=== PATIENT | male | born 1970 | race Caucasian/White ===

== ENCOUNTER 2020-02-02 01:49 | Day surgery (SDC) | payer BC, SELFPAY ==
[2020-01-29 11:59] VITALS: BMI 23.9
[2020-02-02 07:17] VITALS: BP 136/76; PULSE 55; RESP 18; TEMP 36.8; O2SAT 100
[2020-02-02] MEDS: LACTATED RINGERS 1,000 ML 150 ML IV CONT (07:28)
--- NOTE | 2020-02-02 07:51 | P.HP_ITS ---
History of Present Illness History of Present Illness Consent: Risks, benefits, and alternatives have been discussed and questions answered. Patient agrees to proceed with procedure. Chief complaint: Neosplasm Screening Narrative: Rogerio Brody is a 50 year old male Referred for screening colonoscopy. He has no family history of colon cancer [facility] Family History Family History Grandparent Diabetes mellitus Father Acute myocardial infarction Social History Social History Smoking status: Never smoker Alcohol intake: never Meds Home Medications and Allergies Home Medications Medication Instructions Recorded Confirmed Type atorvastatin 10 mg PO DAILY 01/29/20 02/02/20 History Allergies Allergy/AdvReac Type Severity Reaction Status Date / Time No Known Allergies Allergy Verified 02/02/20 07:09 Vital Signs Vital Signs - 24 hr 02/02/20 07:17 Temperature 36.8 C Pulse Rate 55 L Respiratory Rate 18 Blood Pressure 136/76 Pulse Oximetry 100 Exam Resp: Auscultation: clear to auscultation bilaterally Cardio: Rate: regular rate Rhythm: regular rhythm GI: GI Palp: Yes Soft to palpation and No Tenderness to palpation present (GI) Assessment and Plan Assessment and plan (1) Colon cancer screening: Code(s): Z12.11 - Encounter for screening for malignant neoplasm of colon Status: Acute Assessment and Plan: Colonoscopy with possible biopsy or polypectomy or cautery or injection of substances.
--- NOTE | 2020-02-02 08:00 | WPDANESEPPF ---
Anes - Initial Pre Proc Eval Procedure: Operation Date: 02/02/20 08:30 Proposed Procedures p Screening Colonoscopy - Ranjit Friend MD Date/Time: 02/02/20 08:00 Surgeon: Ranjit Friend MD Pre Op Diagnosis: Neosplasm Screening Patient Data Age: 50 Gender: M Height: 6 ft Weight: 81 kg Last Vital Signs Temp 98.2 F 02/02/20 07:17 Pulse 55 L 02/02/20 07:17 Resp 18 02/02/20 07:17 BP 136/76 02/02/20 07:17 Pulse Ox 100 02/02/20 07:17 Allergies Allergy/AdvReac Type Severity Reaction Status Date / Time No Known Allergies Allergy Verified 02/02/20 07:09 Home Medications Medication Instructions Recorded Confirmed Type atorvastatin 10 mg PO DAILY 01/29/20 02/02/20 History Patient hx anesthesia problems: none Family hx anesthesia problems: none PMFSH Past Medical History Medical History (Updated 02/02/20 @ 08:00 by Jordan Campo MD) Hyperlipidemia Family History Family History Grandparent Diabetes mellitus Father Acute myocardial infarction Social History Social History Smoking status: Never smoker Alcohol intake: never Anes - Eval Final PreProcedure Day of Procedure 02/02/20 08:00 Patient weight: normal Heart: regular rate and rhythm Lungs: clear to auscultation Airway: Mallampati scale class II Neurological: alert and oriented Last oral intake: >/= 8 hours ASA classification: II Emergent: no Anesthetic plan: proceed Anesthesia type and monitoring: general GIVS and standard monitoring Informed Consent: The patient's anesthetic plan and its attendant risks and benefits were discussed with the patient/family/POA. Questions were solicited and answers provided to the satisfaction of the patient/family/POA.
[2020-02-02 08:40] VITALS: BP 105/71; PULSE 65; RESP 16; O2SAT 95
[2020-02-02 08:50] VITALS: BP 114/72; PULSE 58; RESP 16; O2SAT 100
--- NOTE | 2020-02-02 08:57 | SUR.PHASEII ---
COVID SHEET GIVEN
[2020-02-02 09:00] VITALS: BP 122/74; PULSE 60; RESP 16; O2SAT 100
== END 2020-02-02 09:14 | disposition home or self-care (01) ==
PROVIDERS: PCP Family Medicine; Visit Provider Internal Medicine Gastroenterology
PROC: 0DJD8ZZ Inspection of Lower Intestinal Tract, Via Natural or Artificial Opening Endoscopic (ICD-10-PCS; CPT 45378; principal; 2020-02-02 08:30)
DX: Z12.11 Encounter for screening for malignant neoplasm of colon (principal); E78.5 Hyperlipidemia, unspecified
CPT/HCPCS: 45378; J2704; J7120

== ENCOUNTER → 2024-12-22 10:08 | Outpatient (REF) | payer OTHER, SELFPAY ==
--- OUTSIDE RECORDS SUMMARY | 2024-12-22 10:51 | XMS_ITS | Clinical Summary ---
Author Organization [facility] Address [address] [place] [id number] Care Team Providers Care Media Executive Name Role Phone Andreas Smith MD Primary Care Provider [phone] Guero Salcedo MD Unavailable [phone] Allergies No known active allergies Medications atorvastatin (LIPITOR) 10 mg tablet 12/20/2023 Active linaCLOtide (LINZESS) 145 mcg capsule 1 capsule (145 mcg total) daily Active Active Problems No known active problems Surgical History Surgery Date Site/Laterality Comments COLONOSCOPY 01/14/2020 - 02/13/2020 SHOULDER SURGERY Left labrum and bicep tendon Medical History Medical History Date Comments IBS (irritable colon syndrome) c onstipation Family History Medical History Relation Name Comments No Known Problems Father No Known Problems Mother Relation Name Status Comments Father Mother Social History Tobacco Use Types Packs/Day Years Used Date Smoking Tobacco: Never Smokeless Tobacco: Never Personal Safety Answer Date Recorded Getting School Help Needed Not on file 01/17 Sex and Gender Information Value Date Recorded Sex Assigned at Not on file 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 Gender Identity Not on file Sexual Orientation Not on file Obstetrics History Last Filed Vital Signs Vital Sign Reading Time Taken Comments Blood Pressure 131/70 02/24/2024 1:00 PM CDT Pulse 69 02/24/2024 1:00 PM CDT Temperature - - Respiratory Rate - - Oxygen Saturation 99% 02/24/2024 1:00 PM CDT Inhaled Oxygen Concentration - - Weight 78.9 kg (174 lb) 02/24/2024 1:00 PM CDT Height 175.3 cm (5' 9 ) 02/24/2024 1:00 PM CDT Body Mass Index 25.7 02/24/2024 1:00 PM CDT Plan of Treatment Health Maintenance Due Date Last Done Comments Colon Cancer Screening-Colonoscopy 1970 Depression Screening 1970 Hepatitis C Screening 1970 Prostate Cancer Screening-PSA 1970 DTaP/Tdap/Td Vaccine (1 - Tdap) 1981 Hepatitis B Screening 1988 Regular Well Visit/Exam 18-64 1988 Zoster Vaccine (1 of 2) 2020 Influenza Vaccine (#1) 2024 Pneumococcal vaccine <65 Aged Out No longer eligible based on patient's age to complete [place] [address] [facility] Care Teams Media Executive Relationship Specialty Start Date End Date Andreas Smith MD [address] [place] [address] [address] PCP - General Family Medicine 01/18/24 Guero Salcedo MD [id number] [place] [address] Surgeon Colon and Rectal Surgery 02/24/24
--- OUTSIDE RECORDS SUMMARY | 2024-12-22 10:51 | XMS_ITS | Referral Summary ---
Author Organization [facility] Address [address] [place] [id number] Care Team Providers Care Structural Steel Painter Name Role Phone Andreas Smith MD Primary Care Provider [phone] Guero Salcedo MD Unavailable [phone] Allergies No known active allergies Medications atorvastatin (LIPITOR) 10 mg tablet 12/20/2023 Active linaCLOtide (LINZESS) 145 mcg capsule 1 capsule (145 mcg total) daily Active Active Problems No known active problems Social History Tobacco Use Types Packs/Day Years Used Date Smoking Tobacco: Never Smokeless Tobacco: Never Personal Safety Answer Date Recorded Getting School Help Needed Not on file 01/17 Sex and Gender Information Value Date Recorded Sex Assigned at Not on file 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
== END ==
LOC: ANHLAB 10:08
PROVIDERS: PCP Family Medicine; Visit Provider Plastic Surgery
DX: L72.0 Epidermal cyst (principal)
CPT/HCPCS: 88304